=== PATIENT | male | born 1945 | race Caucasian/White ===

== ENCOUNTER 2023-03-11 10:39 | Observation (INO) ==
[2023-03-11 10:54] LABS: POC Calcium, Ionized 1.16 (1.16-1.32); POC Creatinine 0.8 (0.6-1.2); POC Potassium 3.2 (3.3-5.1)
--- NOTE | 2023-03-11 11:20 | Emergency Department Note ---
HPI General Chief complaint: Nausea/Vomiting/Diarrhea Stated complaint: vomiting Time Seen by Provider: 03/11/23 11:04 Source: patient and family Mode of arrival: wheelchair Limitations: no limitations History of Present Illness HPI Narrative: Narrative: 77-year-old male presents with with generalized weakness fatigue since his first Zometa infusion on February 23 for prostate cancer that is metastasized to his bone. Since then he has had generalized weakness. Fatigue muscle aches. Over the last 3 days has been unable to ambulate even using his walker. Initially had constipation. Took MiraLAX 2 days ago. With stools loose today 3 episodes. No melena or gross blood. Did have an episode of vomitus yesterday with no bile or blood was decreased p.o. intake over the last 2 to 3 days. No abdominal pain. States hot flashes. However no temperature. Does have a temperature here in the ER at 38.1. States that he has been having nasal congestion for the last 2 days. No sore throat. No cough. No chest pain. Does complain of some shortness of breath secondary to the nasal congestion. No history of allergies or antihistamines taken. Had blood work done on February 20 prior to the infusion that showed a hemoglobin 11.1 normal renal function. [facility] also showed a stable hemoglobin at 11.1 with normal electrolytes renal function. Dr. Danielson is the oncologist Related Data Home Medications Medication Instructions Recorded Confirmed abiraterone 250 mg tablet 1,000 mg PO QAM 01/26/21 11/16/22 aspirin 81 mg tablet,delayed 81 mg PO QDAY 01/26/21 11/16/22 release brimonidine 0.1 % eye drops 1 drp ophthalmic (eye) Q8H 01/26/21 11/16/22 finasteride 5 mg tablet 5 mg PO QDAY 01/26/21 11/16/22 hydrochlorothiazide 25 mg tablet 25 mg PO QAM 01/26/21 11/16/22 metformin 1,000 mg tablet 1,000 mg PO QDAY 01/26/21 11/16/22 tamsulosin 0.4 mg capsule 0.4 mg PO QDAY 01/26/21 11/16/22 duloxetine 60 mg capsule,delayed 60 mg PO QDAY 10/03/22 11/16/22 release latanoprost 0.005 % eye drops 1 drp ophthalmic (eye) QDAY 10/03/22 11/16/22 atorvastatin 80 mg tablet 40 mg PO QDAY 10/04/22 11/16/22 hydrocortisone 5 mg tablet (Cortef) See Rx Instructions .Route .COMPLEX 10/04/22 11/16/22 leuprolide acetate (6 month) 45 mg 45 mg IM [id number] 10/04/22 11/16/22 intramuscular syringe kit metoprolol tartrate 25 mg tablet 50 mg PO QAM 10/04/22 11/16/22 nitroglycerin 0.4 mg sublingual 0.4 mg sublingual Q5M PRN Chest 10/04/22 11/16/22 tablet Pain polyethylene glycol 3350 17 4 g PO QDAY 10/04/22 11/16/22 gram/dose oral powder (Miralax) prednisone 5 mg tablet 5 mg PO QDAY 10/04/22 11/16/22 valsartan 160 mg tablet 320 mg PO QDAY 10/04/22 11/16/22 potassium chloride 20 mEq 20 meq PO BID 10/30/22 11/16/22 tablet,extended release Previous Rx's Medication Instructions Recorded oxycodone 5 mg tablet 5 mg PO Q6H PRN pain #7 tabs 10/30/22 amoxicillin 875 mg-potassium 1 tab PO Q12H #14 tabs 12/20/22 clavulanate 125 mg tablet Allergies Allergy/AdvReac Type Severity Reaction Status Date / Time gabapentin Allergy Unknown Unknown Verified 03/11/23 10:44 Cyclobenzaprine AdvReac Mild Hallucinati Verified 03/11/23 10:44 ng ketorolac AdvReac Mild Hallucinati Verified 03/11/23 10:44 ng Review of Systems ROS ROS Narrative: Narrative: 10 point review of system is otherwise negative except as mentioned in HPI. PFSH Narrative Patient History Narrative: Narrative: Medical/Surgical/Family History All Active Problems (Updated 03/11/23 @ 14:52 by Susan Torres MD) Fall (Acute) Closed head injury (Acute) Facial laceration (Acute) Fracture of nasal bone (Acute) Encounter for removal of sutures (Acute) COVID-19 (Acute) Weakness (Acute) Inability to walk (Acute) Acute hypokalemia (Acute) Pulmonary nodule (Acute) Prostate cancer (Acute) Cervical muscle strain (Acute) Type 2 diabetes mellitus (Chronic) Raised prostate specific antigen (Chronic) Osteoarthritis (Chronic) Multiple lung nodules (Chronic) Hyperlipidemia (Chronic) Hearing loss (Chronic) Glaucoma (Chronic) ED (erectile dysfunction) (Chronic) Hip pain (Chronic) Tinnitus (Chronic) Disequilibrium (Chronic) Depression (Chronic) Cyst of skin (Chronic) Chronic obstructive lung disease (Chronic) Chest pain (Chronic) Carcinoma of prostate (Chronic) BPH with obstruction/lower urinary tract symptoms (Chronic) Atherosclerosis of aorta (Chronic) Anemia (Chronic) Actinic keratosis (Chronic) Malignant melanoma of skin (Chronic) RADHA (obstructive sleep apnea) (Chronic) Vitamin D deficiency (Chronic) Vitamin B12 deficiency (Chronic) CAD (coronary artery disease) (Chronic) Prostate cancer metastatic to bone (Chronic) Prediabetes (Chronic) Abscess of skin or subcutaneous tissue (Chronic) History of prostate cancer (Chronic) Chest wall muscle strain (Chronic) Constipation (Chronic) Medical History Abscess of skin or subcutaneous tissue Actinic keratosis Anemia Atherosclerosis of aorta BPH with obstruction/lower urinary tract symptoms Bursitis Of hip CAD (coronary artery disease) Carcinoma of prostate Cellulitis of chest wall Chest pain Chest wall muscle strain Chronic obstructive lung disease Constipation Cyst of skin Depression Disequilibrium When walking ED (erectile dysfunction) Glaucoma Hearing loss Hip pain History of prostate cancer Hyperlipidemia Impacted cerumen Malignant melanoma of skin Multiple lung nodules RADHA (obstructive sleep apnea) Osteoarthritis Prediabetes Prostate cancer metastatic to bone Raised prostate specific antigen Skin abscess Tinnitus Type 2 diabetes mellitus Vitamin B12 deficiency Vitamin D deficiency Surgical History History of arteriography (12/08/11) Using two catheters History of colonoscopy History of left heart catheterization (12/08/11) History of PTCA (12/08/11) History of surgery (12/08/11) Insertion of [id number] coronary artery stents, vascular stent, angiocardiography of left heart, intravascular imaging of coronary vessels, procedure on single vessel Family History Other No pertinent family history Social History Smoking Status: Current every day smoker Alcohol Intake Frequency: does not drink Substance Use: does not use Exam Narrative Narrative: Narrative: (Please note that portions of this note may have been completed with a voice recognition program. Efforts were made to edit the dictations but occasionally words are mis-transcribed) CONSTITUTIONAL: 83 kg elderly male. resting comfortably. Not in acute distress. Non toxic. Awake alert and oriented x3. Cooperative, follows commands. HEAD: Normocephalic. Atraumatic. EYES: EOMI PERRL ENT: No drooling stridor. speech clear fluent. MM dry. Nares boggy turbinates bilaterally No drainage noted. Posterior pharynx no erythema swelling lesions. Uvula is midline. No tonsils appreciated. NECK: Supple. Full range of motion. Trachea midline CARDIOVASCULAR: Adequate peripheral perfusion. S1-S2. Regular rate and rhythm. No murmurs rubs gallops. No JVD. No lower extremity edema. +2 radial pulses bilaterally. PULMONARY: Nonlabored. Speaking full sentences. Clear to auscultation bilaterally. No rhonchi wheeze or crackles. ABDOMINAL: Soft. Nondistended. Nontender. Positive bowel sounds. EXTREMITIES: No gross deformities. However weak needs assist x1 to even sit up on stretcher SKIN: Warm and dry. No rash. No petechiae. NEUROLOGY: Sensation is intact. No gross focal deficits. GCS of 15 General Limitations: no limitations Course Vital Signs Vital signs: Vital Signs Temperature 38.1 C H 03/11/23 10:41 Pulse Rate 89 03/11/23 10:41 Respiratory Rate 16 03/11/23 10:41 Pulse Oximetry (%) 96 03/11/23 10:41 Oxygen Delivery Method Room Air 03/11/23 10:41 Temperature 36.6 C 03/11/23 14:34 Pulse Rate 85 03/11/23 14:24 Respiratory Rate 16 03/11/23 14:24 Blood Pressure 166/86 03/11/23 14:24 Pulse Oximetry (%) 97 03/11/23 14:24 Oxygen Delivery Method Room Air 03/11/23 10:41 [facility] MDM Narrative Medical decision making narrative: Narrative:ddx URI pneumonia UTI pyelonephritis sepsis bacteremia acute dehydration electrolyte abnormality interabdominal infection including diverticulitis colitis perforation etc. Cultured. IV fluid hydration. Pot assium 3.2 magnesium 1.5 repleted IV and p.o. respectively. Chronic anemia hemoglobin 10. Chest x-ray per radiology shows no acute process however right mid lung nodule. Claritin for his nasal congestion. EKG per EDMD interpretation does show a sinus rhythm at 89 bpm with PACs. Left anterior fa scicular block. Normal axis. No ST elevations or depressions. No T wave abnormalities. No ectopy. No old EKG. COVID swab did come back positive. received 3 vaccines last booster in 2020. Udip trace LE, formal UA with culture sent. He and his are updated on results clinical impressions treatment plan. Secondary to patient being too weak to ambulate likely secondary to COVID I do not feel safe for patient to go home. I do recommend admission. Initially patient was hesitant however after discussion with his agreeable to admission. I did speak to the hospitalist who accepts. Lab Data 03/11/23 11:40 Labs: Lab Results 03/11/23 03/11/23 03/11/23 Range/Units 10:49 11:40 11:40 WBC 6.2 (4.5-11.0) K/mcL RBC 3.56 L (4.63-6.08) M/mcL Hgb 10.0 L (13.7-17.5) g/dL Hct 31.0 L (40.1-51.0) % POC Hct 28.0 L (41-55) MCV 87.1 (80.0-100.0) fL MCH 28.1 (26.0-34.0) pg MCHC 32.3 (31.0-36.0) g/dL RDW 13.1 (11.5-14.5) % Plt Count 275 (140-440) K/mcL MPV 9.5 (8.8-12.5) fL Immature Gran % (Auto) 0.2 (0.0-0.5) % Neut % (Auto) 72.9 (38.0-78.0) % Lymph % (Auto) 8.2 L (15.5-49.0) % [place] % (Auto) 18.0 H (1.0-12.0) % Eos % (Auto) 0.5 (0.0-7.0) % Baso % (Auto) 0.2 (0.0-2.0) % Lymph # (Auto) 0.51 L (1.50-4.80) K/mcL [place] # (Auto) 1.12 H (0.10-0.90) K/mcL Eos # (Auto) 0.03 (0.00-0.70) K/mcL Baso # (Auto) 0.01 (0.00-0.30) K/mcL Immature Gran # 0.01 (0.00-0.05) K/mcl Absolute Neutrophils 4.55 (1.80-8.00) K/mcL VBG Lactic Acid 1.1 (0.5-2.0) mmol/L POC Sodium 139 (133-145) POC Potassium 3.2 L (3.3-5.1) POC Chloride 101 (96-108) POC Total CO2 25.0 (22-30) POC Anion Gap 17.0 H (8.0-16.0) POC BUN 10 (6-20) POC Creatinine 0.8 (0.6-1.2) POC Glucose 116 H (70-105) POC WB Ioniz Calcium 1.16 (1.16-1.32) Phosphorus (2.5-4.5) mg/dL Magnesium (1.6-2.5) mg/dL Total Bilirubin (0.1-1.0) mg/dL Direct Bilirubin (<0.3) mg/dL AST (<40) U/L ALT (<40) U/L Alkaline Phosphatase (39-117) U/L Total Protein (5.9-8.4) gm/dL Albumin (3.2-5.2) gm/dL Globulin (2.2-3.7) gm/dL Lipase (7-60) U/L 03/11/23 Range/Units 11:40 WBC (4.5-11.0) K/mcL RBC (4.63-6.08) M/mcL Hgb (13.7-17.5) g/dL Hct (40.1-51.0) % POC Hct (41-55) MCV (80.0-100.0) fL MCH (26.0-34.0) pg MCHC (31.0-36.0) g/dL RDW (11.5-14.5) % Plt Count (140-440) K/mcL MPV (8.8-12.5) fL Immature Gran % (Auto) (0.0-0.5) % Neut % (Auto) (38.0-78.0) % Lymph % (Auto) (15.5-49.0) % [place] % (Auto) (1.0-12.0) % Eos % (Auto) (0.0-7.0) % Baso % (Auto) (0.0-2.0) % Lymph # (Auto) (1.50-4.80) K/mcL [place] # (Auto) (0.10-0.90) K/mcL Eos # (Auto) (0.00-0.70) K/mcL Baso # (Auto) (0.00-0.30) K/mcL Immature Gran # (0.00-0.05) K/mcl Absolute Neutrophils (1.80-8.00) K/mcL VBG Lactic Acid (0.5-2.0) mmol/L POC Sodium (133-145) POC Potassium (3.3-5.1) POC Chloride (96-108) POC Total CO2 (22-30) POC Anion Gap (8.0-16.0) POC BUN (6-20) POC Creatinine (0.6-1.2) POC Glucose (70-105) POC WB Ioniz Calcium (1.16-1.32) Phosphorus 2.8 (2.5-4.5) mg/dL Magnesium 1.5 L (1.6-2.5) mg/dL Total Bilirubin 0.6 (0.1-1.0) mg/dL Direct Bilirubin 0.2 (<0.3) mg/dL AST 35 (<40) U/L ALT 17 (<40) U/L Alkaline Phosphatase 60 (39-117) U/L Total Protein 5.6 L (5.9-8.4) gm/dL Albumin 3.2 (3.2-5.2) gm/dL Globulin 2.4 (2.2-3.7) gm/dL Lipase 17 (7-60) U/L Discharge Plan Patient/Caregiver Discharge Instructions Pt seen by [employer] ARCHITECT/PA only: No Clinical Impression: COVID-19, Weakness, Inability to walk, Acute hypokalemia, Pulmonary nodule, Prostate cancer Patient Disposition: Xfer As Inpt ([facility]) Condition: Fair Follow up with: Michael Xavier ARNP [Primary Care Provider] - Prescriptions: No Action latanoprost 0.005 % drops 1 drp ophthalmic (eye) QDAY duloxetine 60 mg capsule,delayed release(DR/EC) 60 mg PO QDAY atorvastatin 80 mg tablet 40 mg PO QDAY metoprolol tartrate 25 mg tablet 50 mg PO QAM hydrocortisone [Cortef] 5 mg tablet See Rx Instructions .ROUTE .COMPLEX Rx Instructions: 2 tablets in am and 1 tablet at lunch time leuprolide acetate (6 month) 45 mg syringe kit 45 mg IM [id number] nitroglycerin 0.4 mg tablet, sublingual 0.4 mg sublingual Q5M PRN (Reason: Chest Pain) Rx Instructions: do not exceed 3 doses per episode polyethylene glycol 3350 [Miralax] 17 gram/dose powder 4 g PO QDAY valsartan 160 mg tablet 320 mg PO QDAY abiraterone 250 mg tablet 1,000 mg PO QAM Rx Instructions: must be taken on empty stomach, at least 1 hr before or 2 hrs after a meal/food aspirin 81 mg tablet,delayed release (DR/EC) 81 mg PO QDAY brimonidine 0.1 % drops 1 drp ophthalmic (eye) Q8H finasteride 5 mg tablet 5 mg PO QDAY hydrochlorothiazide 25 mg tablet 25 mg PO QAM metformin 1,000 mg tablet 1,000 mg PO QDAY tamsulosin 0.4 mg capsule 0.4 mg PO QDAY prednisone 5 mg tablet 5 mg PO QDAY Rx Instructions: 1 tab by mouth twice daily, take as long as on Zytiga. potassium chloride 20 mEq Tablet Extended Release 20 meq PO BID oxycodone 5 mg tablet 5 mg PO Q6H PRN (Reason: pain) Qty: 7 0RF amoxicillin-pot clavulanate 875-125 mg tablet 1 tab PO Q12H Qty: 14 0RF
[2023-03-11] MEDS ORDERED: 0.9 % SODIUM CHLORIDE 1,000 ML IV ONE (11:22)
[2023-03-11] MEDS ORDERED: POTASSIUM CHLORIDE 20 MEQ in DEXTROSE 5% IN WATER 250 ML IV ONE (11:22)
[2023-03-11 12:31] LABS: Basophils # (Auto) 0.01 K/mcL (0.00-0.30); Basophils % (Auto) 0.2 % (0.0-2.0); Eosinophils # (Auto) 0.03 K/mcL (0.00-0.70); Eosinophils % (Auto) 0.5 % (0.0-7.0); Lymphocytes # (Auto) 0.51 K/mcL (1.50-4.80); Lymphocytes % (Auto) 8.2 % (15.5-49.0); Mean Cell Volume 87.1 fL (80.0-100.0); Mean Corpuscular HGB Conc 32.3 g/dL (31.0-36.0); Mean Platelet Volume 9.5 fL (8.8-12.5); Monocytes # (Auto) 1.12 K/mcL (0.10-0.90); Neutrophils % (Auto) 72.9 % (38.0-78.0); Platelet Count 275 K/mcL (140-440); RBC 3.56 M/mcL (4.63-6.08); Red Cell Distribution Width 13.1 % (11.5-14.5); WBC 6.2 K/mcL (4.5-11.0)
[2023-03-11 12:42] LABS: Albumin 3.2 gm/dL (3.2-5.2); Bilirubin,Direct 0.2 mg/dL (<0.3); Bilirubin,Total 0.6 mg/dL (0.1-1.0); Globulin 2.4 gm/dL (2.2-3.7); Phosphorous 2.8 mg/dL (2.5-4.5)
[2023-03-11] MEDS ORDERED: MAGNESIUM OXIDE 400 MG TABLET PO ONE (12:50)
--- NOTE | 2023-03-11 14:11 | XRay Report ---
CLINICAL INFORMATION: fever COMPARISON: 10/21/2014 and 11/08/2022 FINDINGS: Heart size, mediastinum and pulmonary vessels are normal. No infiltrates. There is a 9 mm nodule in the right mid lung over the line the anterior right third rib. Few tiny calcified granulomas seen in the central lung regions. No effusions. IMPRESSION: No infiltrates. 10 mm nodule has developed in the right midlung. It is likely a granuloma or bone island within the anterior right third rib. Suggest two-view upright chest x-ray for further evaluation Interpreted and Authenticated by: Reji Medina 03/11/23
[2023-03-11] MEDS ORDERED: LORATADINE 10 MG TABLET PO ONE (14:49)
--- NOTE | 2023-03-11 14:58 | Internal Med History&Physical ---
HPI History of Present Illness Patient information: Note initiated : 03/11/23 at 2:45 pm Service Date, if different from initiated Date: [] Patient: Sarwat Martinez 77 y/o M admitted on . Chief Complaint: [] History of present illness: Mr. Martinez is a 77 year old M Presents the ED because of severe weakness. Patient has a history of prostate cancer metastatic to bone and received a zoledronic acid infusion last week and has felt poor since. He describes significant weakness. He typically is able to get around with a walker but he can even get out of bed since yesterday. He has had nausea and some vomiting. He feels lightheaded when he tries to get up. Also complains of sinus nasal congestion which is a chronic issue but may have worsened after he fell a month ago hitting his nose. Patient denies any new cough chest pain shortness of breath. He had a gentle fall last night where he tried to get up off of the mattress on the floor but fell back down on it. His is unable to get him up and unable to take care of him right now given how weak he is. Work-up in the ED showed unremarkable labs other than a mild hypokalemia and hypomagnesemia. Vital signs are stable. Lactic acid within normal limits. unable to take care of him at home. Chest x-ray in the ED unremarkable. Will obtain UA. He was found to have COVID positive on rapid in the ED and the suspected source of his recent weakness. Patient given magnesium potassium and IV fluids in the ED. Review of Systems: Pertinent positives as above. Denies headache/fever/chills/chest or abdominal pain/cough/dyspnea. Remaining 10 point review of system reviewed negative PHYSICAL EXAM General: Alert, Awake, No acute Distress Eyes/N/T: EOMI, no scleral icterus, PERRL, dry MM Head/Neck: neck supple, full ROM, normocephalic atraumatic CV: RRR, No murmurs, normal s1/s2 Pulm: Clear b/l, no wheezing/rhonchi/rales, no respiratory distress Abd: soft, nontender, +BS x4 Ext: no clubbing/cyanosis/edema, nontender Neuro: Alert, CN 2-12 grossly intact, no focal deficits, moves all extremities, , sensations intact b/l upper/lower Psychiatric: Skin: warm/dry, normal color PFSH PFSH All Active Problems (Updated 03/11/23 @ 14:52 by Susan Torres MD) Fall (Acute) Closed head injury (Acute) Facial laceration (Acute) Fracture of nasal bone (Acute) Encounter for removal of sutures (Acute) COVID-19 (Acute) Weakness (Acute) Inability to walk (Acute) Acute hypokalemia (Acute) Pulmonary nodule (Acute) Prostate cancer (Acute) Cervical muscle strain (Acute) Type 2 diabetes mellitus (Chronic) Raised prostate specific antigen (Chronic) Osteoarthritis (Chronic) Multiple lung nodules (Chronic) Hyperlipidemia (Chronic) Hearing loss (Chronic) Glaucoma (Chronic) ED (erectile dysfunction) (Chronic) Hip pain (Chronic) Tinnitus (Chronic) Disequilibrium (Chronic) Depression (Chronic) Cyst of skin (Chronic) Chronic obstructive lung disease (Chronic) Chest pain (Chronic) Carcinoma of prostate (Chronic) BPH with obstruction/lower urinary tract symptoms (Chronic) Atherosclerosis of aorta (Chronic) Anemia (Chronic) Actinic keratosis (Chronic) Malignant melanoma of skin (Chronic) RADHA (obstructive sleep apnea) (Chronic) Vitamin D deficiency (Chronic) Vitamin B12 deficiency (Chronic) CAD (coronary artery disease) (Chronic) Prostate cancer metastatic to bone (Chronic) Prediabetes (Chronic) Abscess of skin or subcutaneous tissue (Chronic) History of prostate cancer (Chronic) Chest wall muscle strain (Chronic) Constipation (Chronic) Medical History Abscess of skin or subcutaneous tissue Actinic keratosis Anemia Atherosclerosis of aorta BPH with obstruction/lower urinary tract symptoms Bursitis Of hip CAD (coronary artery disease) Carcinoma of prostate Cellulitis of chest wall Chest pain Chest wall muscle strain Chronic obstructive lung disease Constipation Cyst of skin Depression Disequilibrium When walking ED (erectile dysfunction) Glaucoma Hearing loss Hip pain History of prostate cancer Hyperlipidemia Impacted cerumen Malignant melanoma of skin Multiple lung nodules RADHA (obstructive sleep apnea) Osteoarthritis Prediabetes Prostate cancer metastatic to bone Raised prostate specific antigen Skin abscess Tinnitus Type 2 diabetes mellitus Vitamin B12 deficiency Vitamin D deficiency Surgical History History of arteriography (12/08/11) Using two catheters History of colonoscopy History of left heart catheterization (12/08/11) History of PTCA (12/08/11) History of surgery (12/08/11) Insertion of [id number] coronary artery stents, vascular stent, angiocardiography of left heart, intravascular imaging of coronary vessels, procedure on single vessel Family History Other No pertinent family history Social History smoking status: Current every day smoker tobacco type: cigarettes per day: 20 alcohol intake frequency: does not drink substance use type: does not use MEDS/ALLERGIES Home Medications and Allergies Home Medications Medication Instructions Recorded Confirmed Type abiraterone 250 mg tablet 1,000 mg PO QAM 01/26/21 11/16/22 History aspirin 81 mg tablet,delayed 81 mg PO QDAY 01/26/21 11/16/22 History release brimonidine 0.1 % eye drops 1 drp ophthalmic (eye) Q8H 01/26/21 11/16/22 History finasteride 5 mg tablet 5 mg PO QDAY 01/26/21 11/16/22 History hydrochlorothiazide 25 mg tablet 25 mg PO QAM 01/26/21 11/16/22 History metformin 1,000 mg tablet 1,000 mg PO QDAY 01/26/21 11/16/22 History tamsulosin 0.4 mg capsule 0.4 mg PO QDAY 01/26/21 11/16/22 History duloxetine 60 mg capsule,delayed 60 mg PO QDAY 10/03/22 11/16/22 History release latanoprost 0.005 % eye drops 1 drp ophthalmic (eye) QDAY 10/03/22 11/16/22 History atorvastatin 80 mg tablet 40 mg PO QDAY 10/04/22 11/16/22 History hydrocortisone 5 mg tablet (Cortef) See Rx Instructions .Route .COMPLEX 10/04/22 11/16/22 History leuprolide acetate (6 month) 45 mg 45 mg IM [id number] 10/04/22 11/16/22 History intramuscular syringe kit metoprolol tartrate 25 mg tablet 50 mg PO QAM 10/04/22 11/16/22 History nitroglycerin 0.4 mg sublingual 0.4 mg sublingual Q5M PRN Chest 10/04/22 11/16/22 History tablet Pain polyethylene glycol 3350 17 4 g PO QDAY 10/04/22 11/16/22 History gram/dose oral powder (Miralax) prednisone 5 mg tablet 5 mg PO QDAY 10/04/22 11/16/22 History valsartan 160 mg tablet 320 mg PO QDAY 10/04/22 11/16/22 History oxycodone 5 mg tablet 5 mg PO Q6H PRN pain #7 tabs 10/30/22 11/16/22 Rx potassium chloride 20 mEq 20 meq PO BID 10/30/22 11/16/22 History tablet,extended release amoxicillin 875 mg-potassium 1 tab PO Q12H #14 tabs 12/20/22 Rx clavulanate 125 mg tablet Allergies Allergy/AdvReac Type Severity Reaction Status Date / Time gabapentin Allergy Unknown Unknown Verified 03/11/23 10:44 Cyclobenzaprine AdvReac Mild Hallucinati Verified 03/11/23 10:44 ng ketorolac AdvReac Mild Hallucinati Verified 03/11/23 10:44 ng EXAM Constitutional Vitals: Temp Pulse Resp BP Pulse Ox O2 Del Method 98 F 85 16 166/86 97 Room Air 03/11/23 14:34 03/11/23 14:24 03/11/23 14:24 03/11/23 14:24 03/11/23 14:24 03/11/23 10:41 DATA Data Completed and Pending Labs: Labs from last 24 hours 03/11/23 03/11/23 03/11/23 11:40 11:40 11:40 WBC 6.2 RBC 3.56 L Hgb 10.0 L Hct 31.0 L POC Hct MCV 87.1 MCH 28.1 MCHC 32.3 RDW 13.1 Plt Count 275 MPV 9.5 Immature Gran % (Auto) 0.2 Neut % (Auto) 72.9 Lymph % (Auto) 8.2 L [place] % (Auto) 18.0 H Eos % (Auto) 0.5 Baso % (Auto) 0.2 Lymph # (Auto) 0.51 L [place] # (Auto) 1.12 H Eos # (Auto) 0.03 Baso # (Auto) 0.01 Immature Gran # 0.01 Absolute Neutrophils 4.55 VBG Lactic Acid 1.1 POC Sodium POC Potassium POC Chloride POC Total CO2 POC Anion Gap POC BUN POC Creatinine POC Glucose POC WB Ioniz Calcium Phosphorus 2.8 Magnesium 1.5 L Total Bilirubin 0.6 Direct Bilirubin 0.2 AST 35 ALT 17 Alkaline Phosphatase 60 Total Protein 5.6 L Albumin 3.2 Globulin 2.4 Lipase 17 03/11/23 10:49 WBC RBC Hgb Hct POC Hct 28.0 L MCV MCH MCHC RDW Plt Count MPV Immature Gran % (Auto) Neut % (Auto) Lymph % (Auto) [place] % (Auto) Eos % (Auto) Baso % (Auto) Lymph # (Auto) [place] # (Auto) Eos # (Auto) Baso # (Auto) Immature Gran # Absolute Neutrophils VBG Lactic Acid POC Sodium 139 POC Potassium 3.2 L POC Chloride 101 POC Total CO2 25.0 POC Anion Gap 17.0 H POC BUN 10 POC Creatinine 0.8 POC Glucose 116 H POC WB Ioniz Calcium 1.16 Phosphorus Magnesium Total Bilirubin Direct Bilirubin AST ALT Alkaline Phosphatase Total Protein Albumin Globulin Lipase A/P Narrative A/P Narrative: A: *COVID infection: -on room air -high-risk for progression *Generalized weakness/deconditioning/Falls, acute on chronic: 2/2 above *volume depletion: *Hypokalemia/hypomagnesemia: *Prostate cancer with metastatic bone involvement: Follows with Dr. Danielson @[facility] *COPD(not on home oxygen): *Tobacco abuse: *CAD: On aspirin/statin *DM2: *HTN/HLD: On BB/ARB/statin *Anemia, chronic: *Depression: *chronic prednisone use: not sure why he is taking, has been on for years, continue P: -Paxlovid given high risk for progression -IVF -Monitor renal function/UOP -Monitor and replace electrolytes as needed -IS, prn nebs -nasal ocean spray -check UA -cont BB/ARB, hold hctz for now -SSI, -Home medication reconciliation -hold statin/flomax while on paxlovid -Smoking cessation counseling > 3 minutes -PT/OT -ppx: Lovenox Time Spent With Patient Time: Total time spent is greater than 50% in coordination of care (as documented) at patient's floor/unit and/or counseling patient: Initial: Total time with patient: 75 - 90 minutes
[2023-03-11] MEDS ORDERED: ONDANSETRON 4 MG/2 ML VIAL IV ONE (15:32)
[2023-03-11 15:40] LABS: Appearance,Urine CLEAR (Clear); Bilirubin,Urine Negative (Negative); Color,Urine YELLOW; Culture Indicated,Urine No; Glucose,Urine (UA) Negative (Negative); Ketones,Urine Negative (Negative); Leukocyte Esterase,Urine Negative /uL (Negative); Mucus,Urine FEW /hpf; Nitrate,Urine Negative (Negative); Protein,Urine 30 mg/dL (Negative); Specific Gravity,Urine 1.011 (1.000-1.035); Urine Blood Negative (Negative); Urine RBC 3 /hpf (0-3); Urine Squamous Epithelial Cell 0 /hpf (0-4); Urine WBC 1 /hpf (0-4); Urobilinogen,Urine Negative
[2023-03-11] MEDS ORDERED: SODIUM CHLORIDE NASAL 1 SPRAY BOTTLE NAS PRN (19:50)
[2023-03-11] MEDS ORDERED: POLYETHYLENE GLYCOL 3350 17 GM PACKET PO PRN (19:50)
[2023-03-11] MEDS ORDERED: MAGNESIUM SULFATE 2 GM/50 ML BAG IV PRN (19:50)
[2023-03-11] MEDS ORDERED: ONDANSETRON 4 MG/2 ML VIAL IV PRN (19:50)
[2023-03-11] MEDS ORDERED: MAGNESIUM SULFATE 1 GM/100 ML BAG IV SCH (19:50)
[2023-03-11] MEDS ORDERED: LORATADINE 10 MG TABLET PO PRN (19:50)
[2023-03-11] MEDS ORDERED: DEXTROSE 31 GM ORAL.SUSP PO PRN (19:50)
[2023-03-11] MEDS ORDERED: POTASSIUM CHLORIDE 20 MEQ TABLET PO PRN ×2 (19:50)
[2023-03-11] MEDS ORDERED: ACETAMINOPHEN 325 MG TABLET PO PRN (19:50)
[2023-03-11] MEDS ORDERED: POTASSIUM CHLORIDE 40 MEQ in DEXTROSE 5% IN WATER 500 ML IV PRN (19:50)
[2023-03-11] MEDS ORDERED: SODIUM CHLORIDE NASAL 1 SPRAY BOTTLE NAS STA (19:50)
[2023-03-11] MEDS ORDERED: LABETALOL 5 MG/ML ML IV PRN (19:50)
[2023-03-11] MEDS ORDERED: DEXTROSE 50% 50 ML VIAL IV PRN (19:50)
[2023-03-11] MEDS ORDERED: 0.9 % SODIUM CHLORIDE 1,000 ML IV SCH (19:50)
[2023-03-11] MEDS ORDERED: IPRATROPIUM/ALBUTEROL 3 ML AMPUL.NEB NEB PRN (19:50)
[2023-03-11] MEDS ORDERED: SENNOSIDES 1 TABLET PO PRN (19:50)
[2023-03-11] MEDS: 0.9 % SODIUM CHLORIDE 10 ML SYRINGE IV SCH (20:39)
[2023-03-11] MEDS ORDERED: MAGNESIUM SULFATE 8.12 MEQ/2 ML VIAL ONE (22:39)
[2023-03-11] MEDS: INSULIN LISPRO 1 UNIT/0.01 ML UNIT SQ SCH ×2 (23:17→23:18)
[2023-03-11] MEDS: DOCUSATE SODIUM 100 MG CAPSULE PO SCH (23:18)
[2023-03-12] MEDS: NIRMATRELVIR/RITONAVIR 1 EACH BOX PO SCH ×3 (00:22→20:52)
[2023-03-12] MEDS: 0.9 % SODIUM CHLORIDE 10 ML SYRINGE IV SCH ×3 (04:19→20:53)
--- NOTE | 2023-03-12 07:18 | EKG ---
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 Measurements Intervals [place] Rate: 89 P: 47 MI: 137 QRS: -42 QRSD: 99 T: 99 QT: 395 QTc: 471 Interpretive Statements Sinus rhythm Atrial premature complexes in couplets Left anterior fascicular block Low voltage, precordial leads Electronically Signed On 03-12-2023 7:18:27 PDT by Reji Felix M.D. /store/M0/[id number]
[2023-03-12 07:53] LABS: ALT/SGPT 23 U/L (<40); AST/SGOT 57 U/L (<40); Albumin/Globulin Ratio 1.2 (1.0-2.3); Alkaline Phosphatase 58 U/L (39-117); Bilirubin,Direct < 0.2 mg/dL (0-0.3); Bilirubin,Total 0.5 mg/dL (0.1-1.0); Blood Urea Nitrogen 8 mg/dL (8-23); Calcium 7.8 mg/dL (8.6-10.4); Carbon Dioxide 24 mmol/L (22-30); Chloride 100 mmol/L (96-108); Globulin 2.5 gm/dL (2.2-3.7); Glomerular Filtration Rate 86; Glucose 112 mg/dL (70-105); Lactate Dehydrogenase 258 U/L (135-225); Phosphorous 3.1 mg/dL (2.5-4.5); Triglycerides 83 mg/dL (<150); Uric Acid 3.2 mg/dL (2.5-8.0)
[2023-03-12] MEDS: INSULIN LISPRO 1 UNIT/0.01 ML UNIT SQ SCH ×4 (07:58→20:53)
[2023-03-12] MEDS ORDERED: NITROGLYCERIN 0.4 MG TAB.SUBL SL PRN (08:21)
[2023-03-12] MEDS ORDERED: oxyCODONE IR 5 MG TABLET PO PRN (08:21)
--- NOTE | 2023-03-12 08:24 | Internal Med Progress Note ---
SUBJECTIVE Subjective Patient information: Note initiated : 03/12/23 at 8:19 am Service Date, if different from initiated Date: [] Patient: Sarwat Martinez 77 y/o M admitted on 03/11/23. Chief Complaint: [] Interval history: History of present illness: Mr. Martinez is a 77 year old M Presents the ED because of severe weakness. Patient has a history of prostate cancer metastatic to bone and received a zoledronic acid infusion last week and has felt poor since. He describes significant weakness. He typically is able to get around with a walker but he can even get out of bed since yesterday. He has had nausea and some vomiting. He feels lightheaded when he tries to get up. Also complains of sinus nasal congestion which is a chronic issue but may have worsened after he fell a month ago hitting his nose. Patient denies any new cough chest pain shortness of breath. He had a gentle fall last night where he tried to get up off of the mattress on the floor but fell back down on it. His is unable to get him up and unable to take care of him right now given how weak he is. Work-up in the ED showed unremarkable labs other than a mild hypokalemia and hypomagnesemia. Vital signs are stable. Lactic acid within normal limits. unable to take care of him at home. Chest x-ray in the ED unremarkable. Will obtain UA. He was found to have COVID positive on rapid in the ED and the suspected source of his recent weakness. Patient given magnesium potassium and IV fluids in the ED. 03/12 No overnight event or new complaints. Patient afebrile and on room air. Hypokalemic 2.7. Will replace and follow-up. Review of Systems: Pertinent positives as above. Denies headache/fever/chills/chest or abdominal pain/cough/dyspnea. PHYSICAL EXAM General: Alert, Awake, No acute Distress Eyes/N/T: EOMI, no scleral icterus, Head/Neck: neck supple, full ROM, CV: RRR, No murmurs, Pulm: Clear b/l, no wheezing/rhonchi/rales, no respiratory distress Abd: soft, nontender, +BS x4 Ext: no clubbing/cyanosis/edema, nontender Neuro: Alert, no focal deficits, moves all extremities, , sensations intact b/l upper/lower Psychiatric: Skin: warm/dry, normal color Constitutional Vitals: Vital Signs Temp Pulse Resp BP Pulse Ox O2 Del Method 99.9 F H 92 H 20 140/90 92 Room Air 03/12/23 07:16 03/12/23 07:16 03/12/23 07:16 03/12/23 07:16 03/12/23 07:16 03/12/23 07:16 Period Temp Pulse Resp BP Sys/Miller Pulse Ox O2 Del Method O2 Flow Rate Last 24 Hr 98 F-100.5 F 78-98 12-25 120-180/78-102 88-98 Room Air-Room Air Intake and Output 03/11/23 03/12/23 03/12/23 19:59 03:59 11:59 Intake Total 1260 340 Output Total 303 Balance 1260 37 Weight 82.752 kg 82.157 kg Intake & Output: Intake & Output 03/11/23 03/12/23 03/12/23 19:59 03:59 11:59 Intake Total 1260 340 Output Total 303 Balance 1260 37 Weight 82.752 kg 82.157 kg Intake: IV 1260 100 Sodium Chloride 0.9% 1,000 ml @ 1000 Wide Open IV BOLUS ONE Rx#: [id number] Potassium Chloride 20 Meq In 260 Dextrose 5% in Water 250 ml @ 130 mls/hr IV ONCE ONE Rx#: [id number] Oral 240 Output: Void Amount 300 # of times incontinent of urine 3 Other: Urine Appearance Clear Urine Color Bright Yellow Urine Odor Normal Stool Size Small Stool Color Brown Stool Consistency Soft # Unmeasured Emesis 1 # Bowel Movements 1 # of times incontinent of 1 Bowels OBJ DATA Labs 03/11/23 11:40 03/12/23 06:07 Labs: Abnormal Lab Results 03/12/23 03/11/23 03/11/23 06:07 14:30 11:40 RBC Hgb Hct POC Hct Lymph % (Auto) Lawrence % (Auto) Lymph # (Auto) Lawrence # (Auto) POC Potassium Potassium 2.7 L* POC Anion Gap Glucose 112 H POC Glucose Calcium 7.8 L Magnesium 1.5 L AST 57 H Lactate Dehydrogenase 258 H Total Protein 5.5 L 5.6 L Albumin 3.0 L Urine Protein 30 A Urine Mucus Few A 03/11/23 03/11/23 11:40 10:49 RBC 3.56 L Hgb 10.0 L Hct 31.0 L POC Hct 28.0 L Lymph % (Auto) 8.2 L Lawrence % (Auto) 18.0 H Lymph # (Auto) 0.51 L Lawrence # (Auto) 1.12 H POC Potassium 3.2 L Potassium POC Anion Gap 17.0 H Glucose POC Glucose 116 H Calcium Magnesium AST Lactate Dehydrogenase Total Protein Albumin Urine Protein Urine Mucus Meds: Medications Acetaminophen (Acetaminophen 325 Mg Tablet) 650 mg PO Q6HP PRN; Protocol PRN Reason: Per Pain Protocol/Fever > 101 Albuterol/Ipratropium (Ipratropium/Albuterol 3 Ml Ampul.Neb) 3 ml NEB Q4HP PRN PRN Reason: Shortness Of Breath Dextrose (Dextrose 50% 50 Ml Vial) 0 ml IV UD PRN PRN Reason: Per Sliding Scale Diagnostic Test (Pha) (Accu-Chek 1 Each Strip) 1 each FS [facility] COUNTS INCLUDE 234 BEDS AT THE [facility] Last Admin: 03/11/23 23:18 Dose: Not Given Docusate Sodium (Docusate Sodium 100 Mg Capsule) 100 mg PO BID COUNTS INCLUDE 234 BEDS AT THE [facility] Last Admin: 03/11/23 23:18 Dose: 100 mg Enoxaparin Sodium (Enoxaparin 40 Mg/0.4 Ml Syringe) 40 mg SQ DAILY COUNTS INCLUDE 234 BEDS AT THE [facility] Glucose (Dextrose 31 Gm Oral.Susp) 15 gm PO PRN PRN PRN Reason: Hypoglycemia Potassium Chloride 40 meq/ (Dextrose) 520 mls @ 130 mls/hr IV UD PRN PRN Reason: Potassium < 3 Magnesium Sulfate (Magnesium Sulfate) 2 gm in 50 mls @ 50 mls/hr IV UD PRN PRN Reason: Magnesium </= 1.6 Insulin Human Lispro (Insulin Lispro 1 Unit/0.01 Ml Unit) 0 unit SQ ACHS COUNTS INCLUDE 234 BEDS AT THE [facility]; Protocol Last Admin: 03/12/23 07:58 Dose: Not Given Labetalol HCl (Labetalol 5 Mg/Ml Ml) 0 mg IV Q2HP PRN PRN Reason: Hypertension Loratadine (Loratadine 10 Mg Tablet) 10 mg PO DAILYP PRN PRN Reason: Allergy Symptoms Nirmatrelvir/Ritonavir (Nirmatrelvir/Ritonavir 1 Each Box) 1 each PO BID COUNTS INCLUDE 234 BEDS AT THE [facility] Stop: 03/16/23 09:01 Last Admin: 03/12/23 00:22 Dose: 1 mg Ondansetron HCl (Ondansetron 4 Mg/2 Ml Vial) 4 mg IV Q4HP PRN PRN Reason: Nausea And Vomiting Last Admin: 03/11/23 23:33 Dose: 4 mg Polyethylene Glycol (Polyethylene Glycol 3350 17 Gm Packet) 17 gm PO DAILYP PRN PRN Reason: Constipation Potassium Chloride (Potassium Chloride 20 Meq Tablet) 40 meq PO UD PRN PRN Reason: Potssium is 3-3.5 Potassium Chloride (Potassium Chloride 20 Meq Tablet) 40 meq PO UD PRN PRN Reason: Potassium < 3 Senna (Sennosides 1 Tablet) 2 tab PO DAILYP PRN PRN Reason: Constipation Sodium Chloride (Sodium Chloride Nasal 1 [place] Bottle) 2 spray MALI Q4HP PRN PRN Reason: Congestion Sodium Chloride (0.9 % Sodium Chloride 10 Ml Syringe) 10 ml IV Q8 DANIELLE Last Admin: 03/12/23 04:19 Dose: Not Given A/P Narrative A/P Narrative: A: *COVID infection: -on room air -high-risk for progression *Generalized weakness/deconditioning/Falls, acute on chronic: 2/2 above *volume depletion: improved *Hypokalemia/hypomagnesemia: *Prostate cancer with metastatic bone involvement: Follows with Dr. Danielson @[facility] *COPD(not on home oxygen): *Tobacco abuse: *CAD: On aspirin/statin *DM2: a1c 6.4 *HTN/HLD: On BB/ARB/statin *Anemia, chronic: *Depression: *chronic prednisone use: not sure why he is taking, has been on for years, continue P: -Paxlovid given high risk for progression -IVF d/c -Monitor renal function/UOP -Monitor and replace electrolytes as needed -IS, prn nebs -nasal ocean spray -cont BB/ARB, hold hctz for now -SSI, -hold statin/flomax while on paxlovid -Smoking cessation counseling -PT/OT -ppx: Lovenox Time Spent With Patient Time: Total time spent is greater than 50% in coordination of care (as documented) at patient's floor/unit and/or counseling patient: Subsequent: Total time with patient: 35 - 49 minutes
[2023-03-12] MEDS ORDERED: Abiraterone 250 mg tablet PO SCH (09:00)
[2023-03-12] MEDS: LATANOPROST OPHTH DROPS 2.5ML BOTTLE OU SCH ×3 (09:07→20:53)
[2023-03-12] MEDS: ENOXAPARIN 40 MG/0.4 ML SYRINGE SQ SCH (09:07)
[2023-03-12] MEDS: METOPROLOL TARTRATE 25 MG TABLET PO SCH (09:08)
[2023-03-12] MEDS: CALCIUM CARBONATE 500 MG TAB.CHEW CHEWED SCH (09:08)
[2023-03-12] MEDS: ASPIRIN 81 MG TAB.CHEW PO SCH (09:08)
[2023-03-12] MEDS: VITAMIN D3 25 MCG TABLET PO SCH (09:08)
[2023-03-12] MEDS: FINASTERIDE 5 MG TABLET PO SCH (09:08)
[2023-03-12] MEDS: DOCUSATE SODIUM 100 MG CAPSULE PO SCH ×2 (09:09→20:52)
[2023-03-12] MEDS: predniSONE 5 MG TABLET PO SCH (09:09)
[2023-03-12] MEDS: OLMESARTAN MEDOXOMIL 20 MG TABLET PO SCH (09:09)
[2023-03-12] MEDS: LOSARTAN 50 MG TABLET PO SCH (09:09)
[2023-03-12] MEDS: DULoxetine 30 MG CAPSULE PO SCH (09:09)
[2023-03-12] MEDS: POTASSIUM CHLORIDE 20 MEQ TABLET PO SCH ×2 (11:37→17:13)
[2023-03-13 06:44] LABS: Blood Urea Nitrogen 10 mg/dL (8-23); Carbon Dioxide 27 mmol/L (22-30); Chloride 101 mmol/L (96-108); Glomerular Filtration Rate 82; Glucose 87 mg/dL (70-105)
[2023-03-13] MEDS: 0.9 % SODIUM CHLORIDE 10 ML SYRINGE IV SCH (06:58)
[2023-03-13] MEDS: METOPROLOL TARTRATE 25 MG TABLET PO SCH (08:32)
[2023-03-13] MEDS: predniSONE 5 MG TABLET PO SCH (08:32)
[2023-03-13] MEDS: CALCIUM CARBONATE 500 MG TAB.CHEW CHEWED SCH (08:32)
[2023-03-13] MEDS: VITAMIN D3 25 MCG TABLET PO SCH (08:32)
[2023-03-13] MEDS: DULoxetine 30 MG CAPSULE PO SCH (08:32)
[2023-03-13] MEDS: DOCUSATE SODIUM 100 MG CAPSULE PO SCH (08:32)
[2023-03-13] MEDS: POTASSIUM CHLORIDE 20 MEQ TABLET PO SCH (08:33)
[2023-03-13] MEDS: ASPIRIN 81 MG TAB.CHEW PO SCH (08:33)
[2023-03-13] MEDS: ENOXAPARIN 40 MG/0.4 ML SYRINGE SQ SCH (08:33)
[2023-03-13] MEDS: OLMESARTAN MEDOXOMIL 20 MG TABLET PO SCH (08:33)
[2023-03-13] MEDS: LOSARTAN 50 MG TABLET PO SCH (08:33)
[2023-03-13] MEDS: NIRMATRELVIR/RITONAVIR 1 EACH BOX PO SCH (08:34)
[2023-03-13] MEDS: FINASTERIDE 5 MG TABLET PO SCH (08:34)
[2023-03-13] MEDS: LATANOPROST OPHTH DROPS 2.5ML BOTTLE OU SCH (08:34)
[2023-03-13] MEDS: INSULIN LISPRO 1 UNIT/0.01 ML UNIT SQ SCH ×2 (08:35→15:25)
--- NOTE | 2023-03-13 12:24 | Discharge Summary ---
Discharge Provider Provider IMPORTANT FOLLOW-UP INFORMATION FOR PCP: Patient information: Note initiated : 03/13/23 at 12:20 pm Service Date, if different from initiated Date: [] Patient: Sarwat Martinez 77 y/o M admitted on 03/11/23. Chief Complaint: [] Date of admission: 03/11/23 17:15 Discharge date: 03/13/23 Primary care physician: Michael Xavier Consults: 03/11/23 Consult to Physician [CONS] Stat Comment: Consulting Provider: Sameer Hays Reason For Exam: Physician to Consult COURSE Hospital Course Hospital course: Mr. Martinez is a 77 year old male presented with severe weakness and some shortness of breath. Patient has a history of prostate cancer metastatic to bone and received a zoledronic acid infusion last week and has felt poor since. He describes significant weakness. He typically is able to get around with a walker but he can even get out of bed since yesterday. He has had nausea and some vomiting. He feels lightheaded when he tries to get up. Also complains of sinus nasal congestion which is a chronic issue but may have worsened after he fell a month ago hitting his nose. Patient denies any new cough chest pain shortness of breath. He had a gentle fall last night where he tried to get up off of the mattress on the floor but fell back down on it. His is unable to get him up and unable to take care of him right now given how weak he is. Work-up in the ED showed unremarkable labs other than a mild hypokalemia and hypomagnesemia. Vital signs are stable. Lactic acid within normal limits. unable to take care of him at home. Chest x-ray in the ED unremarkable. UA unremarkable. He was found to have COVID positive on rapid in the ED and the suspected source of his recent weakness. Patient given magnesium potassium and IV fluids in the ED. 03/12 No overnight event or new complaints. Patient afebrile and on room air. Hypokalemic 2.7. Will replace and follow-up. 03/13. Patient slept well. He has no shortness of breath. He is satting 100% on room air. His strength is back to baseline. Chest x-ray from 03/11 did not show any acute infiltrate. 10 mm nodule in right midlung. This needs to be follo wed up as an outpatient. PHYSICAL EXAM General: Alert, Awake, No acute Distress Eyes/N/T: EOMI, no scleral icterus, Head/Neck: neck supple, full ROM, CV: S1 and S2, RRR, no murmurs heard Pulm: Chest is clear bilaterally, satting 100% on room air Abd: soft, nontender, +BS x4 Ext: no clubbing/cyanosis/edema, nontender Neuro: Alert, no focal deficits, moves all extremities, , sensations intact b/l upper/lower Psychiatric: Appropriate mood and affect Skin: warm/dry, normal color Discharge diagnoses: *COVID infection: Will complete Paxlovid course, high risk for progression -on room air satting 100%. *Generalized weakness/deconditioning/Falls, acute on chronic: 2/2 above, resolving *volume depletion: improved *Hypokalemia/hypomagnesemia: Replaced *Prostate cancer with metastatic bone involvement: Follows with Dr. Danielson @[facility] *COPD(not on home oxygen): Improving *Tobacco abuse: Counseled on cessation *CAD: On aspirin/statin *DM2: a1c 6.4 *HTN/HLD: On BB/ARB/statin *Anemia, chronic: Stable *Depression: Stable *chronic prednisone use: not sure why he is taking, has been on for years, continue Total time with patient: > 40 minutes Discharge diagnosis: COVID-19, generalized weakness, hypokalemia Time Spent with Patient Time attestation: Total time spent providing and/or coordinating discharge services: Time spent: Greater than 30 minutes EXAM Constitutional Vitals: Temp Pulse Resp BP Pulse Ox O2 Del Method 98.2 F 84 18 128/82 100 Room Air 03/13/23 08:00 03/13/23 08:00 03/13/23 08:00 03/13/23 08:00 03/13/23 08:00 03/13/23 08:00 Discharge Data Data Completed and Pending Labs on day of discharge: Labs from last 24 hours 03/13/23 03/12/23 05:43 16:13 Sodium 136 Potassium 3.5 3.6 Chloride 101 Carbon Dioxide 27 Anion Gap 8.0 BUN 10 Creatinine 0.9 GFR Calculation 82 Glucose 87 Calcium 8.0 L Preliminary micro results at discharge 03/11/23 11:42 Blood Culture - Preliminary Blood 03/11/23 11:40 Blood Culture - Preliminary Blood Discharge Plan Patient/Caregiver Discharge Instructions Activity: ambulate only with your walker Diet: Regular Diet Instructions: COVID-19 (Coronavirus Disease 2019) (GEN) Prescriptions: New Paxlovid 300 mg (150 mg x 2)-100 mg Tablets,Dose Pack 1 ea PO BID Qty: 6 0RF Continued latanoprost 0.005 % drops 1 drp ophthalmic (eye) TID Rx Instructions: L eye duloxetine 60 mg capsule,delayed release(DR/EC) 60 mg PO QDAY atorvastatin 80 mg tablet 40 mg PO QDAY metoprolol tartrate 25 mg tablet 50 mg PO QAM hydrocortisone [Cortef] 5 mg tablet See Rx Instructions .ROUTE .COMPLEX Rx Instructions: 2 tablets in am and 1 tablet at lunch time leuprolide acetate (6 month) 45 mg syringe kit 45 mg IM Q6BCOERS nitroglycerin 0.4 mg tablet, sublingual 0.4 mg sublingual Q5M PRN (Reason: Chest Pain) Rx Instructions: do not exceed 3 doses per episode polyethylene glycol 3350 [Miralax] 17 gram/dose powder 4 g PO QDAY valsartan 160 mg tablet 320 mg PO QDAY abiraterone 250 mg tablet 1,000 mg PO QAM Rx Instructions: must be taken on empty stomach, at least 1 hr before or 2 hrs after a meal/food aspirin 81 mg tablet,delayed release (DR/EC) 81 mg PO QDAY brimonidine 0.1 % drops 1 drp ophthalmic (eye) Q8H finasteride 5 mg tablet 5 mg PO QDAY hydrochlorothiazide 25 mg tablet 25 mg PO QAM metformin 1,000 mg tablet 1,000 mg PO QDAY tamsulosin 0.4 mg capsule 0.4 mg PO QDAY prednisone 5 mg tablet 5 mg PO QDAY Rx Instructions: 1 tab by mouth twice daily, take as long as on Zytiga. potassium chloride 20 mEq Tablet Extended Release 20 meq PO BID oxycodone 5 mg tablet 5 mg PO Q6H PRN (Reason: pain) Qty: 7 0RF Biocal (calcium carbonate) 648 mg PO QDAY cholecalciferol (vitamin D3) 100 mcg PO QDAY cyanocobalamin (vitamin B-12) 1,000 mcg PO QDAY losartan 50 mg PO QDAY Discontinued amoxicillin-pot clavulanate 875-125 mg tablet 1 tab PO Q12H Qty: 14 0RF Follow Up Plan Follow up with: Michael Xavier ARNP [Primary Care Provider] - Patient Disposition: Home, Self-Care Prognosis: Fair Overall status at discharge: patient is back to baseline Discharge Orders: Discharge Order (Routine); Ordered 03/13/23 Ordered By: Momo Borrero
== END 2023-03-13 15:55 | disposition home or self-care (01) ==
LOC: ED 10:39 → MEDSUR 10:39
PROVIDERS: ADMIT Internal Medicine; ATTEND Internal Medicine